=== PATIENT | female | born 1985 | race Caucasian/White ===

== ENCOUNTER → 2018-03-01 | Outpatient (CLI) | payer BC ==
[~2018-03-01] MED LIST: AZEL137S NS; SERT25TA90 PO
== END ==
LOC: LAB 15:59
PROVIDERS: ATTEND Emergency Medicine
DX: R79.0 Abnormal level of blood mineral (principal)
CPT/HCPCS: 36415; 82728; 83540; 83550

== ENCOUNTER → 2018-04-02 | Outpatient (CLI) | payer BC ==
[~2018-04-02] MED LIST changes: +FLU60SYR36 IM
[2018-04-02 10:01] LABS: PLATELET COUNT, AUTOMATED 163 K/uL (150-450)
== END ==
LOC: LAB 08:36
PROVIDERS: ATTEND Obstetrics & Gynecology
DX: Z34.91 Encounter for supervision of normal pregnancy, unspecified, first trimester (principal)
CPT/HCPCS: 36415; 81001; 85025; 86592; 86762; 86787; 86850; 86900; 86901; 87088; 87340

== ENCOUNTER → 2018-07-05 | Outpatient (CLI) | payer BC ==
[~2018-07-05] MED LIST changes: +PREN-127 PO
--- NOTE | 2018-07-05 13:05 | RADIOLOGY IMAGING REPORT ---
FACILITY: [facility] PATIENT NAME: Ally Staley : 1985 MR: [id number] V: [id number] EXAM DATE: ORDERING PHYSICIAN: PETAR UNGER TECHNOLOGIST: Location: [facility] [place] Patient: Ally Staley : 1985 Visit/Account:[id number] Date of Sevice: 07/05/2018 [facility] [place]ICAL [place] HISTORY: anatomical COMPARISON: None FINDINGS: Intrauterine gestations: 1 presentation: Breech heart rate: 150 bpm Amniotic fluid volume: VALENTE 18.7 cm; Largest amniotic fluid pocket 5.4 cm Placenta: Posterior No placenta previa or retroplacental hemorrhage. Uterus: Gravid, otherwise normal Maternal adnexa: Negative Cervix: Closed Gestational Parameters: BPD: 4.9 cm; 20 weeks/ 6 days/ 62nd percentile HC: 18.4 cm; 20 weeks/ 6 days/57th percentile AC: 16.1 cm; 21 weeks/ 2 days/70th percentile FL: 3.2 cm; 20 weeks/ 1 days/30th percentile Average ultrasound age (AUA): 20 weeks/ 6 days Estimated weight (EFW): 373 grams +/- 55 grams. 67 percentile based on LMP Anatomic Survey: Intracranial structures, 4-chamber heart, stomach, kidneys, urinary bladder, spine, 3-vessel cord and cord insertion are unremarkable. Two upper and two lower extremities visualized. IMPRESSION: Live IUP of 20 weeks six days. JONA of 11/16/2018. This is three days ahead of the LMP JONA of 9 Report Dictated By: Husam Mckeon MD at 07/05/2018 12:54 PM Report E-Signed By: Husam Mckeon MD at 07/05/2018 1:00 PM WSN:LEYDA
== END ==
LOC: US 08:48
PROVIDERS: ATTEND Student in an Organized Health Care Education/Training Program
DX: Z02.9 Encounter for administrative examinations, unspecified (principal)

== ENCOUNTER → 2018-08-31 | Outpatient (CLI) | payer BC ==
[~2018-08-31] MED LIST changes: +DIPH0.5S2 IM; +RHO(150015 IM
[2018-08-31 11:21] LABS: PLATELET COUNT, AUTOMATED 160 K/uL (150-450)
== END ==
LOC: LAB 08:53
PROVIDERS: ATTEND Student in an Organized Health Care Education/Training Program
DX: Z34.92 Encounter for supervision of normal pregnancy, unspecified, second trimester (principal)
CPT/HCPCS: 36415; 82950; 85025

== ENCOUNTER → 2018-10-28 | Outpatient (CLI) | payer BC | LOC: LAB 15:25 | PROVIDERS: ATTEND Student in an Organized Health Care Education/Training Program | DX: Z36.85 Encounter for antenatal screening for Streptococcus B (principal) | CPT/HCPCS: 87081 ==

== ENCOUNTER 2018-11-05 05:25 | Inpatient (IN) | payer BC ==
[~2018-11-05] VITALS: Ht 165.1 cm; Wt 83.0 kg
[2018-11-05] MEDS ORDERED: FLUSH 10 ML SYR IVP PRN (05:45)
[2018-11-05] MEDS ORDERED: FAMOTIDINE(*) 20MG/50ML PREMIX 50 ML IVPB PRN (05:45)
[2018-11-05] MEDS ORDERED: ceFAZolin(*) 2GM/D5W 50ML 50 ML IVPB PRN (05:45)
[2018-11-05] MEDS ORDERED: LIDOCAINE/SOD BICARB 8.4% SYR SC PRN (05:45)
[2018-11-05] MEDS ORDERED: OXYTOCIN 30 UNIT/NS 500 ML 500 ML IV PRN (05:45)
[2018-11-05] MEDS ORDERED: fentaNYL CITR 100 MCG/2 ML AMP IVP PRN (05:45)
[2018-11-05] MEDS ORDERED: METOCLOPRAMIDE 10 MG/2 ML SDV IVP PRN (05:45)
[2018-11-05] MEDS ORDERED: LIDOCAINE 1% LOCAL 300 MG/30ML INJ PRN (05:45)
--- NOTE | 2018-11-05 05:48 | History & Physical ---
History of Present Illness EDC per LMP: Nov 19, 2018 Estimated Gestational Age: 38.0 Chief Complaint Contractions History of Present Illness 33-year-old at 38w0d presents for contractions. She has been managing them at home but they have become more intense and every 2-5 minutes. She denies VB/LOF. Reports FM. No preeclampsia symptoms. PNC by IMG. complicated by AMA (normal cfDNA screen), rubella nonimmune and Rh negative (Rhophylac 08/31/18). History Patient's Blood Type: A Negative Rubella Status: Non-Immune Group B Strep Screen: Negative Obstetrical History: Primip Past Medical History: PMH: Anxiety PSH: [place] tooth extraction Allergies: Coded Allergies: No Known Drug Allergies (Unverified , 12/31/17) Social History: No T/E/D. . Family History: Anxiety disorder MOTHER, Age:61 BROTHER OR SISTER FH: diabetes mellitus Paternal Grandfather FH: heart disease Maternal Grandfather FH: stroke Paternal Grandfather Med Rec Home Meds Active Scripts Azelastine Hcl 0.1% [place] (AZELASTINE HCL 0.1% SPRAY) 137 Mcg/0.137 Ml [place].pump, 2 SPRAYS NS DAILY, #1 SPRAY 12 Refills Prov:PETAR UNGER DO 05/31/18 Sertraline Hcl (SERTRALINE HCL) 25 Mg Tablet, 1 TAB PO QDAY, #90 TAB 3 Refills Prov:RAJ MOSES MD 12/31/17 Reported Medications Vits W-Ca,Fe,Fa(<1MG) ( VITAMINS) 1 Each Tablet, 1 EACH PO DAILY, TAB 05/31/18 Review of Systems Constitutional: No Fever Neurological: No Syncope Eyes: No Vision Change Cardiovascular: No Chest Pain Respiratory: No Shortness of Breath, No Cough Gastrointestinal: No Nausea, No Vomiting, No Diarrhea Genitourinary: No Dysuria Musculoskeletal: No Pain Psychiatric: No Depression, No Anxiety Exam General Exam Vital Signs VS reviewed General Apperance: Alert/Awake/No Acute Distress Neuro: No Gross deficits Eyes: Normal Extraocular Movement & Vison Cardiovascular: Regular Rate and Rhythm Respiratory: No Respiratory Distress, Clear to Auscultation Abdomen: Gravid - Non-Tender : Normal Musculoskeletal: No Weakness/Pain Extremities: No Cyanosis,Clubbing or Edema Integumentary: Skin Intact without Lesions or Rash Psychological: Alert & Oriented X3, Appropriate Mood & Affect Cervical Dialation: 5 Cervical Effacement (%): 100 Cervical Consistency: Soft Cervical Position: Mid Station: 0 Presentation: Vertex Uterine Contractions(Q min): 3 Uterine Contraction Strength: Strong UC Resting Tone: Soft Fetus Feeling Movement?: Yes Heart Tones: 140 Heart Tone Variabilty: Moderate FHT Accelerations: Present FHT Decelerations: None FHT Category: I Medical Decision Making Pre-Admit Course Medical Record Review: Yes VTE Prophylasis: Adult Deep Vein Thrombosis/Pulmonary: No Assessment and Plan Problems: (1) Spontaneous onset of labor Assessment & Plan: 33-year-old at 38w0d presents in active labor. She would like an epidural. Will plan IV start and have Rut speak with her. She will then decide on the timing of the epidural. Anticipate . (2) Rh negative status during Assessment & Plan: Rhophylac given 08/31/18. Will plan eval . (3) Rubella non-immune status, antepartum Assessment & Plan: MMR . (4) AMA (advanced maternal age) primigravida 35+ Assessment & Plan: cfDNA screen negative. Reassuring anatomical. [place] gender. (5) 38 weeks gestation of Problem Qualifiers (1) Rh negative status during : Trimester: third trimester Qualified Codes: O26.893 - Other specified related conditions, third trimester; Z67.91 - Unspecified blood type, rh negative KAMERON SAN MD Nov 05, 2018 05:36
[2018-11-05] MEDS: LR(*) 1000 ML BAG 1,000 ML IV SCH ×3 (06:13→11:26)
[2018-11-05 06:19] LABS: PLATELET COUNT, AUTOMATED 160 K/uL (150-450)
[2018-11-05 06:20] VITALS: BP 133/67; Ht 165.1 cm; Wt 83.0 kg
[2018-11-05] MEDS ORDERED: ONDANSETRON 4 MG/2 ML VIAL ONE (07:08)
[2018-11-05] MEDS ORDERED: FENTANYL/ROPIVACAINE 100ML BAG 100 ML ONE (07:08)
[2018-11-05] MEDS ORDERED: BUPIVACAINE 0.25% MPF INJ ONE (07:09)
[2018-11-05] MEDS ORDERED: ePHEDrine 25 MG/5 ML DISP.SYR IVP ONE (07:09)
[2018-11-05] MEDS ORDERED: LIDOCAINE/PF 2% 200MG/10ML AMP 200 MG/10 ML AMPUL EPI PRN (07:10)
[2018-11-05] MEDS ORDERED: BUPIVACAINE 0.5% INJ 30ML VIAL EPI PRN (07:10)
[2018-11-05] MEDS ORDERED: FENTANYL/ROPIVACAINE 100 ML BAG EPI PRN (07:10)
[2018-11-05] MEDS ORDERED: BUPIVACAINE 0.25% MPF INJ EPI PRN (07:10)
[2018-11-05] MEDS ORDERED: LIDO/EPI 2% MPF 1:200,000 20ML EPI PRN (07:10)
[2018-11-05] MEDS ORDERED: fentaNYL CITR 100 MCG/2 ML AMP IT PRN (07:10)
--- NOTE | 2018-11-05 08:19 | Anesthesia OB Pre-Anes Eval ---
History of Present Illness Anesthesia Start Date: Nov 05, 2018 Anesthesia Start Time: 07:11 OB Anesthesia Diagnosis: spontaneous labor EDC: Nov 19, 2018 : 1 Para: 0 Vital Signs: Vital Signs 11/05/18 06:20 Temp 98.2 Pulse 93 Resp 20 B/P (MAP) 133/67 (89) Pulse Ox 97 O2 Delivery Room Air Pain Ratin Heart Tones: 132 Result Diagram: 11/05/18 0603 Height (Inches): 65.00 Weight (Pounds): 183 Past Medical History Medical History: no pertinent history Surgical History: noncontributory Hx Anesthesia Reactions: No Hx Family Anesthesia Reaction: No Home Meds Active Scripts Azelastine Hcl 0.1% [employer] (AZELASTINE HCL 0.1% SPRAY) 137 Mcg/0.137 Ml [employer]. pump, 2 SPRAYS NS DAILY, #1 SPRAY 12 Refills Prov:PETAR UNGER DO 05/31/18 Sertraline Hcl (SERTRALINE HCL) 25 Mg Tablet, 1 TAB PO QDAY, #90 TAB 3 Refills Prov:RAJ MOSES MD 12/31/17 Reported Medications Vits W-Ca,Fe,Fa(<1MG) ( VITAMINS) 1 Each Tablet, 1 EACH PO DAILY, TAB 05/31/18 Allergies: Coded Allergies: No Known Drug Allergies (Unverified , 12/31/17) Anesthesia OB ROS Neurological: No migraines/headaches, No seizures, No neuropathy, No other ENT: Denies Tooth caps, Denies Loose teeth, Denies Chipped teeth, Denies Dentures, Denies Bridges, Denies Retainers, Denies Veneers, Denies Implants, Denies Tongue ring, Denies Other Pulmonary: No asthma, No smoker (pks/day/yrs), No other Airway Class: ll Cardiovascular ROS: No edema, No arrhythmia, No other GI ROS: clear liquids Last Solids Date: Nov 04, 2018 Last Solids Time: 18:00 ROS: No Herpes, No STD(s), No Liver Disease, No Renal Disease, No Other Endocrine ROS: No diabetes, No gestational diabetes, No thyroid disorder, No other Musculoskeletal ROS: No low back pain, No low back injury, No scoliosis, No other ASA Classification: 2 Assessment and Plan Anesthesia Plan: DEBORAH MANLEY CRNA Nov 05, 2018 08:19
--- NOTE | 2018-11-05 08:21 | Procedure Note ---
Anesthetic Placement Note Anesthesia Plan: CSE Permit for Anesthesia Signed: Yes Anesthesia Technique: Patient Sitting Anesthesia Prep: Chlorhexidine Interspace: L 2-3 Local Anesthetic: 1% Lidocaine Amount Local - cc's: 3 Anesthesia Needle: 17g Touhy/Schliff Anesthesia Attempts: 1 Loss of Resistance: Normal Saline Depth of DRU (cm): 5 Epidural Needle Placement: No CSF, No Blood, No Parasthesia Intrathecal Needle: 27 Gauge Pencan Cerebral Spinal Fluid: Yes, Clear Catheter Insertion (cm): 4 Catheter Type: Watson - Spring Wound Epidural Dressing: Tegaderm, Tape Anesthesia Tray: Lot Number ([id number]), Expiration Date (10/07), Reference Number ([id number]) Anesthesia Medications: Intrathecal Dose: mcg Fentanyl (10), mg Marcaine MPF (2.5), Time (0725) Epidural Test Dose: 1.5 Lido/Epi (1:200,000), Dose - mL (3), Time (0728), Negative Epidural Infusion: 0.2% Ropivicaine, With Fentanyl 2mcg/ml, Start Time: (0740) Epidural Pump Setting: Bolus Dose - mL (8), Lockout - Minutes (20), Maintenance Rate - mL/hr (6), Maximum per Hour - mL (30) Complications: None DEBORAH VICTOR CRNA Nov 05, 2018 08:21
--- NOTE | 2018-11-05 09:49 | Labor Progress Note ---
Labor Subjective Progress Notes Subjective Pt is feeling very well. She denies pain. She is too excited to sleep, but is trying to rest. at bedside and very supportive. Feeling Movement?: Yes Vaginal Discharge/Fluid: Bloody Show, Clear Fluid, Moderate Amount Labor Pain: Comfortable Neurological: No Headache Eyes: No Visual Disturbances Labor Objective Vital Signs Vital Signs Date Time Temp Pulse Resp B/P (MAP) Pulse Ox O2 Delivery O2 Flow Rate FiO2 11/05/18 06:20 98.2 93 20 133/67 (89) 97 Room Air Cervical Dialation: 9 Cervical Effacement (%): 100 Cervical Consistency: Soft Cervical Position: Anterior Station: +1 Presentation: Vertex Uterine Contractions(Q min): 3 Uterine Contraction Strength: Strong UC Resting Tone: Soft Fetus Estimated Weight(grams): 3500 Heart Tones: 150 Heart Tone Variabilty: Moderate FHT Accelerations: Present FHT Decelerations: None FHT Category: I General Exam General Appearance: Alert/Awake/No Acute Distress ENT: Normal Neck: No Masses Respiratory: No Respiratory Distress Abdomen: Gravid - Non-Tender, RUQ Tender : Normal Musculoskeletal: No Weakness/Pain Extremities: No Cyanosis,Clubbing or Edema Integumentary: Skin Intact without Lesions or Rash Psychological: Alert & Oriented X3, Appropriate Mood & Affect Other Result Diagram: 11/05/18 0603 Assessment and Plan Problems: (1) Spontaneous onset of labor Assessment & Plan: DM is a 30 y.o. at 38w0d wks with an Estimated Date of Delivery: 11/19/18 dated by LMP and first trimester US Labor state: Active labor. Encourage extreme lateral positioning with peanut ball for optimal descent. Expectant management well-being: Category I FHT: continuous monitoring for epidural Maternal well-being: VSS, normotensive and afebrile, SROM at 0715 for clear fluid PNL: GBS Neg, Type/Rh A-, rubella nonimmune Pain Management: comfortable with Epidural Feed: Breast c/b: * AMA: cfDNA screen negative. Reassuring anatomical. [place] gender. * Rubella non-immune: MMR PP * Rh neg: Rhophylac PP Anticipate re-evaluate in 2-3 hours or prn (2) Rh negative status during Assessment & Plan: Rhophylac given 08/31/18. Will plan eval . (3) Rubella non-immune status, antepartum Assessment & Plan: MMR . (4) AMA (advanced maternal age) primigravida 35+ Assessment & Plan: cfDNA screen negative. Reassuring anatomical. [place] gender. (5) 38 weeks gestation of Problem Qualifiers (1) Rh negative status during : Trimester: third trimester Qualified Codes: O26.893 - Other specified related conditions, third trimester; Z67.91 - Unspecified blood type, rh negative JOSE ALFREDO HAND CNM Nov 05, 2018 09:49
[2018-11-05] MEDS ORDERED: DLR(*) 1000 ML BAG 1,000 ML IV ONE (11:09)
--- NOTE | 2018-11-05 12:05 | Labor Progress Note ---
Labor Subjective Progress Notes Subjective Pt is upright for descent and tolerating well except for some low back pain. Feeling Movement?: Yes Vaginal Discharge/Fluid: Bloody Show, Clear Fluid Labor Pain: Mild (back- CABIN CREW gave epidural bolus) Neurological: No Headache Eyes: No Visual Disturbances Labor Objective Vital Signs Vital Signs Date Time Temp Pulse Resp B/P (MAP) Pulse Ox O2 Delivery O2 Flow Rate FiO2 11/05/18 06:20 98.2 93 20 133/67 (89) 97 Room Air Cervical Dialation: 9 Cervical Effacement (%): 100 Cervical Consistency: Soft Cervical Position: Anterior Station: +1 Presentation: Vertex Uterine Contractions(Q min): 3 Uterine Contraction Strength: Strong UC Resting Tone: Soft Fetus Estimated Weight(grams): 3500 Heart Tones: 150 Heart Tone Variabilty: Minimal (at times), Moderate FHT Accelerations: Present, 15X15 FHT Decelerations: Late (x1), Prolonged (x1) FHT Category: II General Exam General Appearance: Alert/Awake/No Acute Distress ENT: Normal Cardiovascular: Normal Rhythm & Peripheral Pulses Respiratory: No Respiratory Distress Abdomen: Gravid - Non-Tender, Fundus - Non-Tender : Normal Musculoskeletal: No Weakness/Pain Extremities: No Cyanosis,Clubbing or Edema Integumentary: Skin Intact without Lesions or Rash Psychological: Alert & Oriented X3, Appropriate Mood & Affect Other Result Diagram: 11/05/18 0603 Assessment and Plan Problems: (1) Spontaneous onset of labor Assessment & Plan: DM is a 30 y.o. at 38w0d wks with an Estimated Date of Delivery: 11/19/18 dated by LMP and first trimester US here for spontaneous onset of labor Labor state: Transition phase labor. Upright tamia positioning for descent and continue until complete. Expectant management for now. Will plan to discuss R/B/A augmentation with Pitocin if no cervical change at next check. well-being: Category I FHT: continuous monitoring for epidural Maternal well-being: VSS, normotensive and afebrile, SROM at 0715 for clear fluid PNL: GBS Neg, Type/Rh A-, rubella nonimmune Pain Management: comfortable with Epidural, some low back pain so CABIN CREW gave epidural bolus Feed: Breast c/b: * AMA: cfDNA screen negative. Reassuring anatomical. [place] gender. * Rubella non-immune: MMR PP * Rh neg: Rhophylac PP Anticipate , re-evaluate in 1-2 hours or prn (2) Rh negative status during Assessment & Plan: Rhophylac given 08/31/18. Will plan eval . (3) Rubella non-immune status, antepartum Assessment & Plan: MMR . (4) AMA (advanced maternal age) primigravida 35+ Assessment & Plan: cfDNA screen negative. Reassuring anatomical. [place] gender. (5) 38 weeks gestation of Problem Qualifiers (1) Rh negative status during : Trimester: third trimester Qualified Codes: O26.893 - Other specified p regnancy related conditions, third trimester; Z67.91 - Unspecified blood type, rh negative JOSE ALFREDO HAND CNM Nov 05, 2018 12:05
--- NOTE | 2018-11-05 15:03 | Anesthesia Progress Note ---
Progress/Maintenance Anesthesia Note Date: Nov 05, 2018 Anesthesia Note Time: 12:00 Pain Intensity: 4 Pump: On Pump Rate (ML/HR): 6 Sensory Level: ache in lo back Dilatation: 9 Position: Left Drug Bolus: 0.2% Ropivicaine, Fentanyl 2mcg/ml Anesthesia Treatment: hit button for her SYLVIAERDEBORAH CRNA Nov 05, 2018 15:03
--- NOTE | 2018-11-05 15:24 | Anesthesia Progress Note ---
Progress/Maintenance Anesthesia Note Date: Nov 05, 2018 Assessment and Plan Anesthesia Plan: CSE Anesthesia Stop Day: Nov 05, 2018 Anesthesia Stop Time: 15:30 DEBORAH VICTOR CRNA Nov 05, 2018 15:24
--- NOTE | 2018-11-05 16:11 | OB Delivery Note ---
Delivery Note Vaginal Delivery Type: Spont. Vaginal Delivery Delivery Date: Nov 05, 2018 Delivery Time: 15:20 Estimated Gestational Age(wks): 38 Delivery Anesthesia: Epidural Sex: Male Infant Weight (gms): 3[address] [place] Apgars: 1 Minute, 5 Minute Repair Needed: Laceration, Perineal, 2nd Degree Estimated Blood Loss: 200 Delivery Complications: Laceration, Other (body cord) Notes: Pt was admitted to the family care unit on 11/05/18 at 0530 in spontaneous labor. Cervical exam on admission was 5/100/0. She had SROM on 11/05/18 at 0715 for small clear fluid. Pt was GBS neg. FHR was primarily CAT I throughout first stage. Pt utilized continuous lumbar epidural primarily for pain management. Pt was completely dilated on 11/05/18 at 1410 and pt began pushing at 1418 approximately 1 hour and 10 minutes. During pushing FHR dropped during contractions, but returned to baseline once the contraction ceased. Dr. Trevino was present in case an assist was needed. At 1520 pt had a NSVB of live male infant APGARS 7/10, weighing 7lbs 3oz, 3265g. The head delivered spontaneously in the OA position and restituted FLORIAN with no nuchal cord, but one body cord that baby easily delivered through. The anterior shoulder was delivered a traumatically and the posterior shoulder followed. Body delivered easily. Face was wiped with nose and bulb suction and then placed on the maternal abdomen. The was dried and stimulated and noted to have a spontaneous cry and spontaneous movement of all 4 extremities. Cord was clamped X 2 by CNM after pulsations ceased and cut by patient's spouse. Mother was in SF position. At 1525 the placenta and membranes delivered spontaneous and intact with a 3 vessel cord after gentle downward traction. 30 units of Pitocin was placed in 500cc IV to firm the uterus and started immediately after placenta delivery. Upon inspection of the perineum a 2nd degree laceration was noted and repaired in the usual fashion using 3.0 Vicryl rapid under TATIANA. Hemostasis observed. EBL 200 with fundus firm with minimal bleeding. Mom and baby were left in stable condition. "I personally examined the patient and there are no unintended foreign objects in the vagina, and all lap, sponge and needle counts were correct." Elizabeth Bojorquez CNM was present throughout the entire delivery and at the end Dr. Indy Trevino was present if needed for an assist. Salvage Diver in Attendence: ELIZABETH Majano CNM Nov 05, 2018 16:11
[2018-11-05] MEDS ORDERED: MAGNESIUM HYDROXIDE* 30ML UDCP PO PRN (16:15)
[2018-11-05] MEDS ORDERED: BENZOCAINE 20% 60 ML BTL TP PRN (16:15)
[2018-11-05] MEDS ORDERED: ACETAMINOPHEN 325 MG TAB PO PRN (16:15)
[2018-11-05] MEDS ORDERED: GLYCERIN/WITCH HAZEL LEAF 1 PK TP PRN (16:15)
[2018-11-05] MEDS ORDERED: LANOLIN OINT 7 GM TUBE TP PRN (16:15)
[2018-11-05] MEDS ORDERED: HYDROCORTISONE 2.5% CR 30GM TB PR PRN (16:15)
[2018-11-05] MEDS ORDERED: APAP/HYDROCODONE 325/5 TAB PO PRN (16:15)
[2018-11-05] MEDS: IBUPROFEN 800 MG TAB PO SCH (17:15)
[2018-11-05 17:34] VITALS: BP 118/57
[2018-11-05 20:00] VITALS: BP 135/76
[2018-11-05] MEDS: DOCUSATE CALCIUM 240 MG CAP PO SCH (20:26)
[2018-11-06 01:10] VITALS: BP 116/72
[2018-11-06] MEDS: IBUPROFEN 800 MG TAB PO SCH ×3 (01:10→16:37)
[2018-11-06 08:00] VITALS: BP 122/75
--- NOTE | 2018-11-06 08:53 | OB/GYN Progress Note ---
OB Subjective Progress Notes Subjective Pt is feeling well today. She had a good night and just finished for 30 minutes that went well with the nipple shield. She denies HOLMAN, vision changes and RUQ pain. GI: POS Flatus; NEG Nausea, NEG Vomiting, NEG Bowel Movement : Voiding Well, Vaginal Bleeding, Moderate, Clots (small) Pain: Moderate, Tolerating PO Pain Meds Neurological: No Headache Eyes: No Visual Disturbances OB Objective Physical Exam Vital Signs Date Time Temp Pulse Resp B/P (MAP) Pulse Ox O2 Delivery O2 Flow Rate FiO2 11/06/18 01:10 98.0 62 16 116/72 (87) 11/05/18 20:00 Room Air 11/05/18 17:34 94 Intake and Output 11/06/18 07:03 Intake Total 2100 ml Output Total 950 ml Balance 1150 ml Intake Oral 400 ml IV Total 1700 ml Output Urine Total 950 ml # Voids 2 General Appearance: Alert/Awake/No Acute Distress Neurological: No Gross deficits Eyes: Normal Extraocular Movement & Vison ENT: Normal Neck: No Masses Cardiovascular: Normal Rhythm & Peripheral Pulses Respiratory: No Respiratory Distress Abdomen: RUQ Non-Tender, Non-Tender : Normal Musculoskeletal: No Weakness/Pain Extremities: No Cyanosis,Clubbing or Edema Integumentary: Skin Intact without Lesions or Rash Psychological: Alert & Oriented X3, Appropriate Mood & Affect Result Diagram: 11/06/18 0603 Assessment and Plan Hospital Day: 2 BOTTOM STOP ATTACHER Assessment: Stable BOTTOM STOP ATTACHER Plan: Routine Post- Care, Advance Diet, Advance Activity, Discharge Home Tomorrow Problems: (1) Spontaneous onset of labor Status: Resolved (2) Rh negative status during Assessment & Plan: Rhophylac today (3) Rubella non-immune status, antepartum Assessment & Plan: MMR . (4) AMA (advanced maternal age) primigravida 35+ Status: Resolved (5) 38 weeks gestation of Status: Resolved (6) (normal spontaneous vaginal delivery) Status: Resolved (7) Second degree laceration of perineum, delivered, current hospitalization Onset Date: ~ 11/05/2018 Status: Acute Assessment & Plan: Encouraged pt to use the erick bottle when urinating and gently wiping. Use the Dermaplast and ibuprofen scheduled. Reviewed s/s of infection and dehiscence. (8) care and examination immediately after delivery Onset Date: ~ 11/05/2018 Status: Acute Assessment & Plan: Pt is day # 1 s/p uncomplicated of a male infant. She is meeting all of her milestones and will be ready to home tomorrow. She is voiding well and passing gas. Continue normal care and encourage pt to working nursing today. Problem Qualifiers (1) Rh negative status during : Trimester: third trimester Qualified Codes: O26.893 - Other specified related conditions, third trimester; Z67.91 - Unspecified blood type, rh negative JOSE ALFREDO HAND CNM Nov 06, 2018 08:53
[2018-11-06] MEDS ORDERED: MEASLES,MUMP,RUBELLA VAC 0.5ML SUBQ ONE (09:00)
[2018-11-06] MEDS: DOCUSATE CALCIUM 240 MG CAP PO SCH ×2 (09:14→21:34)
[2018-11-06 11:51] VITALS: BP 115/70
--- NOTE | 2018-11-06 11:51 | Anesthesia Post Eval Note ---
Anesthesia Post Eval Note Vital Signs Date Time Temp Pulse Resp B/P (MAP) Pulse Ox O2 Delivery O2 Flow Rate FiO2 11/06/18 08:00 97.7 74 16 122/75 (91) 96 Room Air Hematology Test 11/05/18 06:03 11/06/18 06:03 Neutrophils (%) (Auto) 87.1 % (39.4-72.5) H Lymphocytes (%) (Auto) 9.8 % (17.6-49.6) L Monocytes (%) (Auto) 2.5 % (4.1-12.4) L Eosinophils (%) (Auto) 0.0 % (0.4-6.7) L Basophils (%) (Auto) 0.6 % (0.3-1.4) Nucleated RBC Relative Count (auto) 0.0 /100WBC Neutrophils # (Auto) 14.8 K/uL (2.0-7.4) H Lymphocytes # (Auto) 1.7 K/uL (1.3-3.6) Monocytes # (Auto) 0.4 K/uL (0.3-1.0) Eosinophils # (Auto) 0.0 K/uL (0.0-0.5) Basophils # (Auto) 0.1 K/uL (0.0-0.1) Nucleated RBC Absolute Count (auto) 0.00 K/uL White Blood Count 14.3 k/uL (4.5-11.0) H Red Blood Count 3.69 M/uL (4.17-5.56) L Hemoglobin 11.8 g/dL (12.0-16.0) L Hematocrit 33.8 % (34.0-47.0) L Mean Corpuscular Volume 91.7 fL (80.0-96.0) Mean Corpuscular Hemoglobin 32.0 pg (26.0-33.0) Mean Corpuscular Hemoglobin Concent 34.9 g/dL (32.0-36.0) Red Cell Distribution Width 13.9 % (11.5-14.5) Platelet Count 124 K/uL (150-450) L Mean Platelet Volume 10.3 fL (7.2-11.1) Serology Test 11/06/18 06:03 Pt able to participate in Eval: Yes Cardiovascular Status: Satisfactory Respiratory Status: Satisfactory Pain Managment: Satisfactory PO Nausea/Vomiting: Satisfactory Temperature Management: Satisfactory Mental Status: Satisfactory, Alert, Oriented X3 Post-Op Hydration Status: Satisfactory, Tolerating PO Well, Voiding w/o Difficulty Anesthesia Type: LEB Anesthesia Tolerance: Day 1 post vaginal delivery with epidural. Pt has ambulated, and has full sensation bilat. Signs of infection are reviewed and she agrees to seek medical intervention should these or persistent HOLMAN occur. WALI VAZQUEZ SERVICE TECHNICIAN Nov 06, 2018 11:51
[2018-11-06 16:51] VITALS: BP 110/72
[2018-11-06 21:35] VITALS: BP 110/59
[2018-11-07] MEDS: IBUPROFEN 800 MG TAB PO SCH ×2 (00:47→08:27)
[2018-11-07 00:49] VITALS: BP 116/88
[2018-11-07 07:32] VITALS: BP 104/73
[2018-11-07] MEDS: DOCUSATE CALCIUM 240 MG CAP PO SCH (08:27)
[2018-11-07] MEDS ORDERED: IBUP800T37 PO (09:58)
--- NOTE | 2018-11-07 10:06 | OB/GYN Discharge Summary ---
Discharge Summary Reason for Hosp/Final Diag: (1) Spontaneous onset of labor Status: Resolved (2) Rh negative status during Hospital Course & Plan: Rhophylac done (3) Rubella non-immune status, antepartum Hospital Course & Plan: MMR done. (4) AMA (advanced maternal age) primigravida 35+ Status: Resolved (5) 38 weeks gestation of Status: Resolved (6) (normal spontaneous vaginal delivery) Status: Resolved (7) Second degree laceration of perineum, delivered, current hospitalization Onset Date: ~ 11/05/2018 Status: Acute Hospital Course & Plan: Encouraged pt to use the erick bottle when urinating and gently wiping. Use the Dermaplast and ibuprofen scheduled. Reviewed s/s of infection and dehiscence. (8) care and examination immediately after delivery Onset Date: ~ 11/05/2018 Status: Acute Hospital Course & Plan: Reason for Hospitalization: Spontaneous labor, delivery and Procedures Performed: epidural, laceration repair Delivery Type: Hospital Course: Pt was admitted to the family care unit on 11/05/18 at 0530 in spontaneous labor. Cervical exam on admission was 5/100/0. She had SROM on 11/05/18 at 0715 for small clear fluid. Pt was GBS neg. FHR was primarily CAT I throughout first stage. Pt utilized continuous lumbar epidural primarily for pain management. Uncomplicated period Delivery Information: see delivery note Estimated blood loss: 200 Episiotomy: none Laceration: 2nd degree perineal repaired Pain Management: epidural Subjective: Pt is feeling well today and ready to go home. Abdominal pain: minimal cramping and tolerating Ibuprofen Perineal pain: tolerable Vaginal bleeding: minimal without clots Flatus: yes UTI symptoms: Denies Feeding modality: Breast Problems with breast feeding: having some difficulty with latching, using a nipple shield for flat nipples. Working with the nurses today before DC to home Bowel movement: no Ambulating: yes Preeclampsia symptoms: denies Nausea/vomiting: none experience: Very satisfied control: unsure will discuss at 2 weeks Objective Exam: Meeting all PP milestones Vitals: Normotensive and afebrile Breasts: soft, nipples flat with some soreness, no visible cracks or bleeding Abdomen: FF 1 <U Perineum: healing well with good approximation, no significant swelling Lochia: normal without clots Extremities: BLE, soft non tender and - Homans sign Disposition: Patient discharged to home in medically stable condition. No Known Allergies Medication Instructions Given to the Patient at Discharge: Take Ibuprofen 800mg PO TID for 5-7 days as needed Follow-up Appointment: 2&6 weeks with Elizabeth Bojorquez CNM Activity/Restrictions: Pelvic rest; nothing in vagina for six weeks. Return Precautions: Patient instructed to call the clinic or return to hospital for fever > 101 degree F; chills; severe nausea or vomiting; inability to tolerate anything by mouth for > 24 hours; increasingly severe abdominal/pelvic pain; foul smelling vaginal discharge; vaginal bleeding > 1 pad per hour for > 2 hours; separation, drainage, or redness of incision or laceration site. Reviewed depression and pre-eclampsia s/s and when to seek care. [place] Vital Signs Vital Signs Date Time Temp Pulse Resp B/P (MAP) Pulse Ox O2 Delivery O2 Flow Rate FiO2 11/07/18 07:32 97.8 18 104/73 (83) 96 Room Air 11/07/18 00:49 76 Weight (Pounds): 183 Result Diagram: 11/06/18602 Condition: Improved Discharge: Home Home Meds Active Scripts Ibuprofen (IBUPROFEN) 800 Mg Tablet, 800 MG PO Q8H, #30 TAB 0 Refills Prov:ELIZABETH BOJORQUEZ CNM 11/07/18 Azelastine Hcl 0.1% [place] (AZELASTINE HCL 0.1% SPRAY) 137 Mcg/0.137 Ml [place].pump, 2 SPRAYS NS DAILY, #1 SPRAY 12 Refills Prov:PETAR UNGER DO 05/31/18 Sertraline Hcl (SERTRALINE HCL) 25 Mg Tablet, 1 TAB PO QDAY, #90 TAB 3 Refills Prov:RAJ MOSES MD 12/31/17 Reported Medications Vits W-Ca,Fe,Fa(<1MG) ( VITAMINS) 1 Each Tablet, 1 EACH PO DAILY, TAB 05/31/18 Problem Qualifiers (1) Rh negative status during : Trimester: third trimester Qualified Codes: O26.893 - Other specified related conditions, third trimester; Z67.91 - Unspecified blood type, rh negative ELIZABETH BOJORQUEZ CNM Nov 07, 2018 10:06
[2018-11-07 10:59] VITALS: BP 112/73
== END 2018-11-07 15:30 | disposition home or self-care (01) | DRG 806 ==
LOC: OB 05:25 → OBSVTOIN 05:25
PROVIDERS: ADMIT Obstetrics & Gynecology; ATTEND Obstetrics & Gynecology
PROC: 10E0XZZ Delivery of Products of Conception, External Approach (ICD-10-PCS; principal; 2018-11-05)
PROC: 0KQM0ZZ Repair Perineum Muscle, Open Approach (ICD-10-PCS; 2018-11-05)
PROC: 3E0334Z Introduction of Serum, Toxoid and Vaccine into Peripheral Vein, Percutaneous Approach (ICD-10-PCS; 2018-11-05)
DX: O69.82X0 Labor and delivery complicated by other cord entanglement, without compression, not applicable or unspecified (principal); O36.0130 Maternal care for anti-D [Rh] antibodies, third trimester, not applicable or unspecified; Z37.0 Single live birth; O70.1 Second degree perineal laceration during delivery; Z3A.38 38 weeks gestation of pregnancy
CPT/HCPCS: 36415; 85025; 85027; 85461; 86592; 86850; 86870; 86900; 86901; 90471; 90707; J2405; J2590; J2791; J3010; J7120; S0020